=== PATIENT | male | born 2005 | race Caucasian/White ===

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

== ENCOUNTER 2024-12-18 11:24 | Emergency (ER) | payer BC, SELFPAY ==
[2024-12-18 11:25] VITALS: BP 117/73; PULSE 65; RESP 16; TEMP 36.5; O2SAT 100; BMI 17.6
[2024-12-18 11:44] VITALS: O2SAT 98
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
== END 2024-12-18 13:14 | disposition home or self-care (01) ==
PROVIDERS: Emergency Provider Emergency Medicine; Referring Provider Emergency Medicine; Visit Provider Emergency Medicine
DX: S80.02XA Contusion of left knee, initial encounter (principal); V49.40XA Driver injured in collision with unspecified motor vehicles in traffic accident, initial encounter; Y92.410 Unspecified street and highway as the place of occurrence of the external cause
CPT/HCPCS: 73564; 99282